=== PATIENT | male | born 1995 | race Caucasian/White ===

== ENCOUNTER 2019-11-19 13:11 | Emergency (ER) | payer SELFPAY ==
[2019-11-19 14:11] VITALS: BP 133/69; PULSE 85; TEMP 101.5; BMI 27.4
[2019-11-19] MEDS ORDERED: IBUPROFEN 600 MG TABLET (FP) PO ONE ×2 (14:12→16:01)
--- NOTE | 2019-11-19 14:13 | PDOC ---
Rapid Medical Evaluation Chief Complaint: Cold Symptoms Time Seen by Provider: 11/19/19 14:12 Medical Evaluation: Allergies Allergy/AdvReac Type Severity Reaction Status Date / Time No Known Allergies Allergy Verified 11/19/19 14:11 Vital Signs Temp Pulse Resp BP Pulse Ox 101.5 F H 85 18 133/69 98 11/19/19 14:09 11/19/19 14:09 11/19/19 14:11/19/19 14:11/19/19 14:11/19/19 14:12 Pt c/o: uri s/s since yesterday, took tylenol this am Pt on brief exam: febrile, tachy Pt ordered for: motrin, influenza pt to proceed to the ED Discharge Disposition - Diagnosis Influenza - Discharge Dispostion Disposition: HOME Condition at time of disposition: Stable - Prescriptions Prescriptions: Ibuprofen 600 mg PO Q6H #30 tablet Ondansetron [Zofran Odt -] 4 mg SL TID #10 od.tablet Oseltamivir Phosphate [Tamiflu] 75 mg PO BID #10 capsule - Referrals Referrals: Tal Cortez MD [Staff Physician] - - Patient Instructions Printed Discharge Instructions: DI for Influenza -- Adult Additional Instructions: You have the flu. This is a virus that will get better on its own in approximately 7-10 days. You will most likely have a fever for 7-10 days because of the flu. This is to be expected. Drink plenty of fluids to prevent dehydration and get plenty of rest. Warm tea and cough drops may help your symptoms as well. Take the tamiflu twice a day for 5 days to help reduce the symptoms of the flu. This medication will not cure the flu. Take Motrin as directed for pain and fever. Take all other medications as prescribed. Follow up with your primary care doctor this week Return to the ED for difficulty breathing, shortness of breath, weakness, or if you have any other changes in your symptoms. Tienes gripe. Sarika es un virus que mejorar por s solo en aproximadamente 7-10 cortez. Lo ms probable es que tenga fiebre edna 7-10 cortez debido a la gripe. [place] es de esperar. [place] muchos lquidos para prevenir la deshidratacin y descanse mucho. El t caliente y las gotas para la tos tambin pueden ayudar a los sntomas. [place] el tamiflu dos veces al da edna 5 cortez para ayudar a reducir los sntomas de la gripe. Sarika medicamento no curar la gripe. [place] Motrin johnny se indica para el dolor y la fiebre. [place] todos los dems medicamentos segn lo prescrito. Haz un seguimiento con tu mdico de atencin primaria esta semana Regrese al ED para dificultad para respirar, dificultad para respirar, debilidad o si tiene otros cambios en los sntomas. Print Language: GREEK - Post Discharge Activity Work/School Note: Back to Work
--- NOTE | 2019-11-19 17:52 | PDOC ---
History of Present Illness - General Chief Complaint: Cold Symptoms Stated Complaint: COLD SYMPTOM Time Seen by Provider: 11/19/19 14:12 History Source: Patient Exam Limitations: No Limitations Past History - Past Medical History Allergies/Adverse Reactions: Allergies Allergy/AdvReac Type Severity Reaction Status Date / Time No Known Allergies Allergy Verified 11/19/19 14:11 Home Medications: Ambulatory Orders Ibuprofen 600 mg PO Q6H #30 tablet 11/19/19 Ondansetron [Zofran Odt -] 4 mg SL TID #10 od.tablet 11/19/19 Oseltamivir Phosphate [Tamiflu] 75 mg PO BID #10 capsule 11/19/19 COPD: No - Psycho Social/Smoking Cessation Hx Smoking History: Never smoked Review of Systems - Review of Systems Able to Perform ROS?: Yes Comments:: 11/19/19 18:16 CONSTITUTIONAL: Present: Fever, chills, body aches Absent: diaphoresis, generalized weakness, malaise, loss of appetite HEENT: Present: rhinorrhea, nasal congestion, throat pain. Absent: difficulty swallowing, mouth swelling, ear pain, eye pain, visual Changes CARDIOVASCULAR: Absent: chest pain, loss of consciousness, palpitations, irregular heart rate, peripheral edema RESPIRATORY: Present: Cough Absent: shortness of breath, dyspnea with exertion, orthopnea, wheezing, stridor, hemoptysis GASTROINTESTINAL: Absent: abdominal pain, abdominal distension, nausea, vomiting, diarrhea, constipation, melena, hematochezia SKIN: Absent: rash, itching, pallor NEUROLOGIC: Present: headache Absent: focal weakness or paresthesias, dizziness, unsteady gait, seizure, mental status changes, bladder or bowel incontinence Is the patient limited Cambodian proficient: No *Physical Exam - Vital Signs Last Vital Signs Temp Pulse Resp BP Pulse Ox 101.5 F H 85 18 133/69 98 11/19/19 14:11/19/19 14:11/19/19 14:11/19/19 14:11/19/19 14:09 - Physical Exam 11/19/19 18:17 GENERAL: Well developed, well nourished. Awake and alert. No acute distress. HEENT: Normocephalic, atraumatic. PERRLA, EOMI. No conjunctival pallor. Sclera are non- icteric. Moist mucous membranes. Oropharynx is clear. NECK: Supple. Full ROM. No JVD. Carotid pulses 2+ and symmetric, without bruits. No thyromegaly. No lymphadenopathy. CARDIOVASCULAR: Regular rate and rhythm. No murmurs, rubs, or gallops. Distal pulses are 2+ and symmetric. PULMONARY: No evidence of respiratory distress. Lungs clear to auscultation bilaterally. No wheezing, rales or rhonchi. ABDOMINAL: Soft. Non-tender. Non-distended. No rebound or guarding. No organomegaly. Normoactive bowel sounds. MUSCULOSKELETAL Normal range of motion at all joints. No bony deformities or tenderness. No CVA tenderness. EXTREMITIES: No cyanosis. No clubbing. No edema. No calf tenderness. SKIN: Warm and dry. Normal capillary refill. No rashes. No jaundice. NEUROLOGICAL: Alert, awake, appropriate. Cranial nerves 2-12 intact. No deficits to light touch and temperature in face, upper extremities and lower extremities. No motor deficits in the in face, upper extremities and lower extremities. Normoreflexic in the upper and lower extremities. Normal speech. Toes are down-going bilaterally. Gait is normal without ataxia. PSYCHIATRIC: Cooperative. Good eye contact. Appropriate mood and affect. ED Treatment Course - Medications Given in the ED: ED Medications Discontinued Medications Generic Name Dose Route Start Last Admin Trade Name Freq PRN Reason Stop Dose Admin Ibuprofen 600 mg 11/19/19 14:12 11/19/19 16:03 Motrin - PO 11/19/19 14:13 600 mg ONCE ONE Administration Medical Decision Making - Medical Decision Making 11/19/19 18:21 the patient is a 24-year-old male with no past medical history who presents to the ER with 2 days of flulike symptoms. His recently tested positive for flu B. He is also complaining of a sore throat. Denies nausea, vomiting. A/P: Flu like symptoms Febrile to 101.5 F Motrin given Pt's tests positive for flu, despite negative flu result, will treat Strep negative Exam benign. DC home with supportive therapy I discussed the physical exam findings, ancillary test results and final diagnoses with the patient. I answered all of the patient's questions. The patient was satisfied with the care received and felt comfortable with the discharge plan and treatment plan. The Patient agrees to follow up with the primary care physician/specialist within 24-72 hours. Return precautions were given. Discharge - Discharge Information Problems reviewed: Yes Clinical Impression/Diagnosis: Influenza Condition: Stable Disposition: HOME - Admission No - Additional Discharge Information Prescriptions: Ibuprofen 600 mg PO Q6H #30 tablet Ondansetron [Zofran Odt -] 4 mg SL TID #10 od.tablet Oseltamivir Phosphate [Tamiflu] 75 mg PO BID #10 capsule - Follow up/Referral Referrals: Tal Cortez MD [Staff Physician] - - Patient Discharge Instructions Patient Printed Discharge Instructions: DI for Influenza -- Adult Additional Instructions: You have the flu. This is a virus that will get better on its own in approximately 7-10 days. You will most likely have a fever for 7-10 days because of the flu. This is to be expected. Drink plenty of fluids to prevent dehydration and get plenty of rest. Warm tea and cough drops may help your symptoms as well. Take the tamiflu twice a day for 5 days to help reduce the symptoms of the flu. This medication will not cure the flu. Take Motrin as directed for pain and fever. Take all other medications as prescribed. Follow up with your primary care doctor this week Return to the ED for difficulty breathing, shortness of breath, weakness, or if you have any other changes in your symptoms. Tienes gripe. Sarika es un virus que mejorar por s solo en aproximadamente 7-10 cortez. Lo ms probable es que tenga fiebre edna 7-10 cortez debido a la gripe. [place] es de esperar. [place] muchos lquidos para prevenir la deshidratacin y descanse mucho. El t caliente y las gotas para la tos tambin pueden ayudar a los sntomas. [place] el tamiflu dos veces al da edna 5 cortez para ayudar a reducir los sntomas de la gripe. [place] medicamento no curar la gripe. [place] Motrin johnny se indica para el dolor y la fiebre. [place] todos los dems medicamentos segn lo prescrito. Haz un seguimiento con tu mdico de atencin primaria esta semana Regrese al ED para dificultad para respirar, dificultad para respirar, debilidad o si tiene otros cambios en los sntomas. Print Language: LUX[place]BOURGISH - Post Discharge Activity Work/Back to School Note: Back to Work
== END 2019-11-19 17:55 | disposition home or self-care (01) ==
LOC: JERFT 13:11
DX: J11.1 Influenza due to unidentified influenza virus with other respiratory manifestations (principal)
CPT/HCPCS: 87070; 87804; 87880; 99281-25